=== PATIENT | female | born 1995 | race Two or more races ===

== ENCOUNTER 2017-05-08 00:44 | Emergency (ER) | payer MEDICAID, OTHER ==
[~2017-05-08] VITALS: Ht 154.9 cm; Wt 65.0 kg
[2017-05-08 00:48] VITALS: BP 130/77
[2017-05-08] MEDS ORDERED: LIDOCAINE 1%, 20ML INFIL ONE (01:00)
[2017-05-08] MEDS ORDERED: LIDOCAINE 1%, 20ML ONE (01:15)
== END 2017-05-08 02:13 | disposition home or self-care (01) ==
LOC: ED 02:08
DX: S01.81XA Laceration without foreign body of other part of head, initial encounter (principal); G89.11 Acute pain due to trauma; X58.XXXA Exposure to other specified factors, initial encounter; Y93.89 Activity, other specified; Y92.89 Other specified places as the place of occurrence of the external cause; Y99.8 Other external cause status
CPT/HCPCS: 12052